=== PATIENT | male | born 1960 ===

== ENCOUNTER 2024-08-20 05:00 | Day surgery (SDC) | payer OTHER ==
[2024-08-12 13:44] VITALS: BP 134/86
[2024-08-12 13:45] VITALS: BP 150/99
[~2024-08-20] VITALS: Ht 175.3 cm; Wt 85.3 kg
[~2024-08-20 05:00] MED LIST: COZAAR100 MG PO; NORVASC2.5 MG PO; TAMS0.4C PO; TRILIPIX45 MG PO
[2024-08-20] MEDS ORDERED: BUPIVACAINE HCL/MPF 0.5% 30ML VIAL ONE (07:04)
[2024-08-20] MEDS ORDERED: LIDOCAINE HCL 1%/EPINEPHRINE 20ML VIAL IJ ONE (07:04)
[2024-08-20] MEDS ORDERED: CEFAZOLIN SODIUM 1,000 MG VIAL ONE ×2 (07:04→10:42)
[2024-08-20] MEDS ORDERED: FAMOTIDINE/PF 20 MG/10 ML SYRINGE IV SCH (09:45)
[2024-08-20] MEDS ORDERED: CEFAZOLIN SODIUM 1,000 MG VIAL IV SCH (09:45)
[2024-08-20] MEDS ORDERED: MORPHINE SULFATE 4 MG/ML VIAL IV ONE (10:00)
[2024-08-20] MEDS ORDERED: FAMOTIDINE/PF 20 MG/2 ML VIAL ONE (10:43)
== END 2024-08-20 14:35 | disposition home or self-care (01) ==
LOC: CIR.AMB 05:00
PROVIDERS: ATTEND Specialist
DX: K40.90 Unilateral inguinal hernia, without obstruction or gangrene, not specified as recurrent (principal); Z88.6 Allergy status to analgesic agent